=== PATIENT | female | born 1975 | race Caucasian/White ===

== ENCOUNTER 2018-02-01 18:00 | Emergency (ER) | payer MEDICAID ==
[~2018-02-01] VITALS: Ht 162.6 cm; Wt 91.4 kg
[2018-02-01 18:11] VITALS: BP 117/75
== END 2018-02-01 23:18 | disposition left against medical advice (07) ==
LOC: ER 18:01
DX: R11.10 Vomiting, unspecified (principal); R19.7 Diarrhea, unspecified; Z53.21 Procedure and treatment not carried out due to patient leaving prior to being seen by health care provider